=== PATIENT | male | born 1950 | race Caucasian/White ===

== ENCOUNTER 2024-01-13 07:50 | Day surgery (SDC) | payer MEDICARE, OTHER, SELFPAY ==
[2024-01-13] VITALS (12 sets, daily range): BP systolic 104–134; BP diastolic 52–66; BMI 39.1
[2024-01-13] MEDS: ASPIRIN 325 MG PO (08:44)
--- NOTE | 2024-01-13 10:21 | ITS.CL.CATH ---
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
Cardiac Catheterization
Procedure Report:
CARDIAC CATHETERIZATION REPORT
Date of Procedure: 01/13/2024
Referring: Ti Levy MD
Indication: Recent onset exertional dyspnea/chest discomfort
HEMODYNAMIC DATA
AO: 129/72
LV: 129/21
LEFT VENTRICULOGRAPHY: Normal ventricular wall motion with EF 59%
CORONARY ANGIOGRAPHY
Dominance: Right
Left Main: Normal
LAD: Normal
Circumflex: Trivial luminal irregularities
RCA: Dominant vessel with trivial luminal irregularities
Closure Device: None-the procedure was performed via the right radial artery. The Jos's test was normal prior to the procedure.
Radiation (mGy): 294
DAP (cm2.Gy): 26.2
Fluoroscopy time: 2.4 minutes
CONCLUSIONS
1: Elevated LVEDP
2: Normal systolic function with EF 59%
3. No evidence of obstructive CAD
4. Symptoms possibly related to diastolic dysfunction given the elevated LVEDP. 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
Copy to: Ti Levy MD, Jase Thompson MD
Nilson Block MD, [facility]
== END 2024-01-13 13:12 | disposition home or self-care (01) ==
LOC: CATH 07:50
PROVIDERS: ATTENDING PHYSICIAN Internal Medicine Cardiovascular Disease; FAMILY PHYSICIAN Family Medicine; OTHER PHYSICIAN Internal Medicine Cardiovascular Disease
DX: R06.09 Other forms of dyspnea (principal); R07.89 Other chest pain
CPT/HCPCS: 93458; C1894; Q9967

== ENCOUNTER → 2024-06-12 13:21 | Outpatient (REF) | payer MEDICARE, OTHER, SELFPAY | LOC: HWRAD 13:21 | PROVIDERS: ATTENDING PHYSICIAN Internal Medicine Critical Care Medicine; FAMILY PHYSICIAN Family Medicine | DX: R07.89 Other chest pain (principal) | CPT/HCPCS: 71046 ==

== ENCOUNTER → 2024-06-22 15:38 | Outpatient (REF) | payer MEDICARE, OTHER, SELFPAY | LOC: HWRAD 15:38 | PROVIDERS: ATTENDING PHYSICIAN Orthopaedic Surgery; FAMILY PHYSICIAN Family Medicine | DX: Z96.649 Presence of unspecified artificial hip joint (principal) | CPT/HCPCS: 73700 ==

== ENCOUNTER → 2024-07-16 06:44 | Outpatient (REF) | payer MEDICARE, OTHER, SELFPAY | LOC: PAVMRI 06:44 | PROVIDERS: ATTENDING PHYSICIAN Orthopaedic Surgery; FAMILY PHYSICIAN Family Medicine | DX: M54.16 Radiculopathy, lumbar region (principal) | CPT/HCPCS: 72148 ==

== ENCOUNTER → 2024-10-21 13:30 | Outpatient (REF) | payer MEDICARE, OTHER, SELFPAY | LOC: MRI 3T 13:30 | PROVIDERS: ATTENDING PHYSICIAN Physical Medicine & Rehabilitation; FAMILY PHYSICIAN Family Medicine | DX: M54.12 Radiculopathy, cervical region (principal) | CPT/HCPCS: 72141 ==

== ENCOUNTER → 2024-10-25 14:06 | Outpatient (REF) | payer MEDICARE, OTHER, SELFPAY | LOC: EMG 14:06 | PROVIDERS: ATTENDING PHYSICIAN Physical Medicine & Rehabilitation; FAMILY PHYSICIAN Family Medicine | DX: M54.12 Radiculopathy, cervical region (principal); R29.898 Other symptoms and signs involving the musculoskeletal system; G56.02 Carpal tunnel syndrome, left upper limb | CPT/HCPCS: 95886; 95909 ==

== ENCOUNTER → 2024-11-29 09:38 | Outpatient (REF) | payer MEDICARE, OTHER, SELFPAY | LOC: EMG 09:38 | PROVIDERS: ATTENDING PHYSICIAN Orthopaedic Surgery Hand Surgery; FAMILY PHYSICIAN Family Medicine | DX: R20.0 Anesthesia of skin (principal); G56.01 Carpal tunnel syndrome, right upper limb | CPT/HCPCS: 95886; 95909 ==

== ENCOUNTER → 2025-02-11 12:42 | Outpatient (REF) | payer MEDICARE, OTHER, SELFPAY | LOC: HWRAD 12:42 | PROVIDERS: ATTENDING PHYSICIAN Nurse Practitioner; FAMILY PHYSICIAN Family Medicine | DX: I71.43 Infrarenal abdominal aortic aneurysm, without rupture (principal) | CPT/HCPCS: 76770 ==